=== PATIENT | female | born 1975 ===

== ENCOUNTER 2019-04-15 09:05 | Day surgery (SDC) | payer MEDICAID ==
--- NOTE | 2019-04-15 11:14 | CP.SDSHP ---
Same Day Surgery H & P - History Proposed Procedure: US guideD FNA of thyroid nodule Pre-Op Diagnosis: thyroid nodule - Allergies Allergies: Allergies No Known Allergies Allergy (Verified 02/27/19 13:38) - Physical Exam Mental Status: Alert & Oriented x3 - Impression Impression: Pt with a complex 3.6 cm right thyroid mass. PLan US guided FNA. Several cervical lymph nodes are also present. Pt. Evaluated Today:Candidate for Anesthesia & Procedure: No - Date & Time Date: 04/15/19 Time: 11:00 Short Stay Discharge - Short Stay Discharge Admitting Diagnosis/Reason for Visit: DX: THYROID NODULE Disposition: HOME/ ROUTINE
--- NOTE | 2019-04-15 11:16 | PCM.SURG1 ---
Surgeon's Initial Post Op Note - Surgeon's Notes Surgeon: Mati Melo MD Car Washer: NONE Type of Anesthesia: Local Pre-Operative Diagnosis: Thyroid nodule Operative Findings: US shows a complex right thyroid mass Post-Operative Diagnosis: Thyroid nodule Operation Performed: US guided FNA Specimen/Specimens Removed: 5 passes with a 25 g needle Estimated Blood Loss: EBL {In ML}: 0 Blood Products Given: N/A Drains Used: No Drains Post-Op Condition: Good Date of Surgery/Procedure: 04/15/19 Time of Surgery/Procedure: 11:15
--- NOTE | 2019-04-15 12:27 | US ---
PROCEDURE: Date of Procedure: 04/15/2019 PROCEDURE: 1. Ultrasound guided FNA of right thyroid nodule, CPT 13956 2. Ultrasound guidance for FNA, 61630 Medications: 2cc 1% Lidocaine HISTORY: Enlarged right thyroid nodule. TECHNIQUE: Following informed consent and procedure time-out, a limited ultrasound patient's neck confirmed the presence of a 3.6 cm complex right thyroid nodule which is predominantly solid. After the patient's neck was prepped and draped in the usual sterile fashion, the skin was anesthetized with 1% lidocaine. Ultrasound-guided fine needle aspiration was then performed of the dominant right thyroid nodule. A total of 5 passes were made into the nodule with 25 gauge needle under ultrasound guidance. The FNA specimen was sent for routine pathology and genetics . Post biopsy ultrasound showed no hematoma. IMPRESSION: Ultrasound-guided FNA of the dominant right thyroid nodule.
[2019-04-15 16:33] VITALS: BMI 27.3
== END 2019-04-15 11:00 | disposition home or self-care (01) ==
LOC: C.SPRAD 09:05
PROVIDERS: ATTEND Radiology Vascular & Interventional Radiology
DX: E04.1 Nontoxic single thyroid nodule (principal)